=== PATIENT | male | born 1980 | race American Indian/Alaskan Native ===

== ENCOUNTER 2018-09-16 17:29 | Emergency (ER) | payer OTHER ==
[2018-09-16 18:28] VITALS: BP 120/76; PULSE 54; RESP 18; TEMP 98.7; O2SAT 96; BMI 22.0
--- NOTE | 2018-09-16 18:37 | C.PDOC ---
History Of Present Illness 37 year old male presents to the ED complaining of left upper chest discomfort that radiates to left shoulder ongoing for 5 hours. Pain is positionally reproducible. Denies reflex. Denies SOB, palpitations, fever, chills, n/v/d, abdominal pain, diaphoresis, lightheadedness, or any other associated symptoms. Time Seen by Provider: 09/16/18 18:32 Chief Complaint (Nursing): Chest Pain History Per: Patient History/Exam Limitations: no limitations Onset/Duration Of Symptoms: Hrs (5) Current Symptoms Are (Timing): Still Present Associated Symptoms: denies: Nausea, Dyspnea, Diaphoresis Past Medical History Reviewed: Historical Data, Nursing Documentation, Vital Signs Vital Signs: Last Vital Signs Temp 98.7 F 09/16/18 17:42 Pulse 54 L 09/16/18 17:42 Resp 18 09/16/18 17:42 BP 120/76 09/16/18 17:42 Pulse Ox 96 09/16/18 17:42 - Medical History PMH: No Chronic Diseases Surgical History: No Surg Hx Family History: States: No Known Family Hx - Social History Hx Alcohol Use: No Hx Substance Use: No - Immunization History Hx Tetanus Toxoid Vaccination: Yes Hx Influenza Vaccination: No Hx Pneumococcal Vaccination: Yes Review Of Systems Except As Marked, All Systems Reviewed And Found Negative. Constitutional: Negative for: Fever, Chills Cardiovascular: Positive for: Chest Pain. Negative for: Palpitations, Light Headedness Respiratory: Negative for: Shortness of Breath Gastrointestinal: Negative for: Nausea, Vomiting, Abdominal Pain, Diarrhea Physical Exam - Physical Exam Appears: Non-toxic, No Acute Distress Skin: Warm, Dry, No Rash Head: Normacephalic Eye(s): bilateral: Normal Inspection Nose: Normal Oral Mucosa: Moist Neck: Supple Chest: Symmetrical Cardiovascular: Rhythm Regular Respiratory: Normal Breath Sounds, No Rales, No Rhonchi, No Wheezing Extremity: No Pedal Edema Neurological/Psych: Oriented x3, Normal Speech Gait: Steady ED Course And Treatment ECG: Interpreted By Me ECG Rhythm: Sinus Rhythm ECG Interpretation: Normal Rate From EC O2 Sat by Pulse Oximetry: 96 (RA) Pulse Ox Interpretation: Normal Medical Decision Making Medical Decision Making: Impression: + positionally reproducable L upper chest pain Plan - EKG normal ekg costochondritis Disposition Doctor Will See Patient In The: Office Counseled Patient/Family Regarding: Studies Performed, Diagnosis - Disposition Referrals: [facility] [Outside] [facility] [place] [Outside] [facility] [Outside] Disposition: HOME/ ROUTINE Disposition Time: 18:37 Condition: GOOD Additional Instructions: motrin 400 mg occasionally as needed if suspected GERD, take Maalox 30 cc's (one tablespoon) 5x/day as needed Instructions: Costochondritis, Acid Reflux (Gastroesophageal Reflux Disease), Adult (DC) Forms: [employer] (Greek) - Clinical Impression Clinical Impression: Chest wall discomfort - Scribe Statement The provider has reviewed the documentation as recorded by the Scribe Viky Choi All medical record entries made by the Scribe were at my direction and personally dictated by me. I have reviewed the chart and agree that the record accurately reflects my personal performance of the history, physical exam, medical decision making, and the department course for this patient. I have also personally directed, reviewed, and agree with the discharge instructions and disposition.
--- NOTE | 2018-09-18 09:54 | CARD ---
APPROVED REPORT Date of service: 09/16/2018 EKG Measurement Heart [id number] <Conclusion> Normal sinus rhythm Right atrial enlargement Borderline ECG
== END 2018-09-16 18:45 | disposition home or self-care (01) ==
LOC: C.ER 17:29
DX: R07.89 Other chest pain (principal)